=== PATIENT | female | born 1970 | race Caucasian/White ===

== ENCOUNTER 2021-04-24 18:16 | Inpatient (IN) ==
[2021-04-24 19:52] LABS: Basophils % 0.2 %; Eosinophils # 0.7 K/mcL (0.0-0.6); Eosinophils % 6.6 %; Hematocrit 33.1 % (35.3-44.9); Immature Granulocytes % 0.3 % (0-4); Lymphocytes % 9.3 %; Mean Corpuscular HGB Conc 30.2 g/dL (31.6-35.5); Mean Corpuscular Hemoglobin 28.6 pg (28.0-33.3); Mean Corpuscular Volume 94.6 fL (83.0-100.0); Mean Platelet Volume 10.3 fL (9.4-12.4); Monocytes # 0.6 K/mcL (0.0-1.3); Monocytes % 5.6 %; Neutrophils # 8.3 K/mcL (1.6-8.9); Platelet Count 222 K/mcL (140-400); Red Cell Distribution Width 13.6 % (11.5-14.5); White Blood Count 10.6 K/mcL (4.3-11.1)
[2021-04-24] MEDS ORDERED: 0.9 % Sodium Chloride 1,000 ML IVC ONE (20:11)
[2021-04-24 20:12] LABS: Alanine Aminotransferase 11 Units/L (7-52); Albumin 3.9 g/dL (3.5-5.7); Albumin/Globulin Ratio 1.4 (1.1-2.2); Alkaline Phosphatase 108 Units/L (34-104); Aspartate Amino Transferase 13 Units/L (13-39); BUN/Creatinine Ratio 25 (6-26); Bilirubin,Indirect 0.3 mg/dL (0.0-1.0); Bilirubin,Total 0.3 mg/dL (0.3-1.0); Blood Urea Nitrogen 23 mg/dL (6-20); Calcium 9.2 mg/dL (8.6-10.3); Carbon Dioxide 25 mEq/L (23-29); Chloride 104 mEq/L (98-107); Globulin 2.7 g/dL (2.4-3.5); Glucose 98 mg/dL (70-105); Lipase 14 Units/L (11-82); Osmolality,Calculated 288 (280-300); Sodium 137 mEq/L (136-145); Total Protein 6.6 g/dL (6.4-8.9); eGFR For African Americans > 60 (> 60); eGFR For Non-African Americans > 60 (> 60)
[2021-04-24] MEDS ORDERED: *HR* FentaNYL (PF) 100 MCG/2 ML VIAL IVP ONE (21:18)
[2021-04-24 21:24] LABS: Bilirubin,Urine Negative (Negative); Blood,Urine Negative (Negative); Clarity,Urine Clear (Clear); Color,Urine Light-Yellow (Yellow); Glucose,Urine (UA) Normal (Normal); Ketones,Urine Negative (Negative); Leukocyte Esterase,Urine Negative (Negative); Nitrite,Urine Negative (Negative); Protein,Urine Negative (Neg-Trace); Specific Gravity,Urine 1.017 (1.010-1.025); Urobilinogen,Urine Normal (Normal)
[2021-04-24] MEDS ORDERED: Isovue-370 500 ML BOTTLE IVP ONE (21:42)
[2021-04-25] MEDS ORDERED: *HR* FentaNYL (PF) 100 MCG/2 ML VIAL IVP ONE ×2 (00:22→06:17)
[2021-04-25] MEDS ORDERED: SODIUM CHLORIDE 0.9% IVPB ONE (01:59)
[2021-04-25] MEDS ORDERED: KETAMINE IVPB ONE (01:59)
[2021-04-25 04:08] LABS: Acetaminophen < 10 mcg/mL (10-20)
[2021-04-25] MEDS ORDERED: Ondansetron 4 MG/2 ML VIAL IVP PRN (11:01)
[2021-04-25] MEDS ORDERED: Naloxone 0.4 MG/ML INJ IVP PRN (11:01)
[2021-04-25] MEDS: Ketorolac 30 MG/ML VIAL IVP PRN (13:03)
[2021-04-25] MEDS: Celecoxib 100 MG CAPSULE PO SCH ×2 (13:03→22:00)
[2021-04-25] MEDS: atenoloL 25 MG TABLET PO SCH (13:04)
[2021-04-25] MEDS: Gabapentin 400 MG CAPSULE PO SCH ×2 (13:04→22:33)
[2021-04-25] MEDS: Loratadine 10 MG TABLET PO SCH (13:04)
[2021-04-25] MEDS ORDERED: Ringers Solution, Lactated 1,000 ML IVC ONE (14:45)
[2021-04-25] MEDS ORDERED: Ringers Solution, Lactated 1,000 ML ONE (14:46)
[2021-04-25] MEDS ORDERED: Piperacillin/Tazobactam 3.375 GM in 0.9 % Sodium Chloride Mini Bag 100 ML IVPB SCH (17:44)
[2021-04-25 19:21] LABS: Influenza A PCR Negative (Negative); Influenza B PCR Negative (Negative); Resp. Syncytial Virus PCR Negative (Negative)
[2021-04-25 19:23] LABS: SARS-CoV-2 by PCR (In House) Negative (Negative)
[2021-04-25] MEDS ORDERED: Albumin 25% 25gram/100mL 25 GM/100 ML IV.SOLN IVPB ONE (19:34)
[2021-04-25] MEDS: Acetaminophen 325 MG TABLET PO PRN (19:34)
[2021-04-25] MEDS: Vancomycin 1,250 MG/262.5 ML IV.SOLN IVPB SCH (19:34)
[2021-04-25] MEDS: Famotidine 20 MG TABLET PO SCH (19:35)
[2021-04-25] MEDS: traZODone 50 MG TABLET PO SCH (22:33)
[2021-04-26] MEDS: Piperacillin/Tazobactam 3.375 GM in 0.9 % Sodium Chloride Mini Bag 100 ML IVPB SCH ×5 (01:56→17:48)
[2021-04-26] MEDS: Mirabegron [Myrbetriq] 50 MG Tab.Er.24h PO SCH (07:30)
[2021-04-26] MEDS: Vancomycin 1,250 MG/262.5 ML IV.SOLN IVPB SCH ×2 (07:51→17:48)
[2021-04-26] MEDS: Ketorolac 30 MG/ML VIAL IVP PRN ×3 (08:22→20:47)
[2021-04-26] MEDS: Acetaminophen 325 MG TABLET PO PRN (08:22)
[2021-04-26] MEDS: atenoloL 25 MG TABLET PO SCH (08:23)
[2021-04-26] MEDS: Loratadine 10 MG TABLET PO SCH (08:23)
[2021-04-26] MEDS: Celecoxib 100 MG CAPSULE PO SCH ×2 (08:23→20:48)
[2021-04-26] MEDS: Gabapentin 400 MG CAPSULE PO SCH ×2 (08:24→20:47)
[2021-04-26] MEDS: Famotidine 20 MG TABLET PO SCH ×2 (08:24→20:47)
[2021-04-26] MEDS ORDERED: lisinopriL 5 MG TABLET PO SCH (09:00)
[2021-04-26] MEDS ORDERED: D5% in Water 1,000 ML IVC PRN (11:12)
[2021-04-26] MEDS ORDERED: *HR* Dextrose 50 % in Water (Syg) 50 ML SYRINGE IVP PRN (11:12)
[2021-04-26] MEDS ORDERED: Dextrose Gel 15 GM/37.5 ML TUBE PO PRN ×2 (11:12)
[2021-04-26] MEDS ORDERED: Gadolinium Contrast Agent (WT Based) IV PRN (11:40)
[2021-04-26] MEDS: Insulin LISPRO 300 UNITS/3 ML VIAL SUBQ SCH ×2 (11:47→17:58)
[2021-04-26] MEDS ORDERED: GADOBUTROL 30 MMOL/30 ML VIAL IVP ONE (12:39)
[2021-04-26 15:34] LABS: eGFR For African Americans > 60 (> 60); eGFR For Non-African Americans > 60 (> 60)
[2021-04-26 16:42] LABS: Acinetobacter baumannii by PCR Not Detected (Not Detect); Candida albicans by PCR Not Detected (Not Detect); Candida glabrata by PCR Not Detected (Not Detect); Candida krusei by PCR Not Detected (Not Detect); Candida parapsilosis by PCR Not Detected (Not Detect); Candida tropicalis by PCR Not Detected (Not Detect); Enterobacter cloacae Cmplx PCR Not Detected (Not Detect); Enterobacteriaceae by PCR Not Detected (Not Detect); Enterococcus by PCR Not Detected (Not Detect); Escherichia coli by PCR Not Detected (Not Detect); Klebsiella oxytoca by PCR Not Detected (Not Detect); Klebsiella pneumoniae by PCR Not Detected (Not Detect); Proteus by PCR Not Detected (Not Detect); Pseudomonas aeruginosa by PCR Not Detected (Not Detect); Serratia marcescens by PCR Not Detected (Not Detect); Staphylococcus aureus by PCR DETECTED (Not Detect); Streptococcus agalactiae(B)PCR Not Detected (Not Detect); Streptococcus by PCR Not Detected (Not Detect); Streptococcus pneumoniae PCR Not Detected (Not Detect); Streptococcus pyogenes (A) PCR Not Detected (Not Detect); mecA Methicillin-Resist Gene Not Detected (Not Detect)
[2021-04-26] MEDS: *HR* OxyCODONE/APAP 5/325 TABLET PO PRN (17:54)
[2021-04-26] MEDS: traZODone 50 MG TABLET PO SCH (23:10)
[2021-04-27] MEDS: Insulin LISPRO 300 UNITS/3 ML VIAL SUBQ SCH ×5 (00:27→23:09)
[2021-04-27] MEDS: Piperacillin/Tazobactam 3.375 GM in 0.9 % Sodium Chloride Mini Bag 100 ML IVPB SCH ×3 (00:53→16:05)
[2021-04-27 01:43] LABS: Basophils % 0.1 %; Hematocrit 27.6 % (35.3-44.9); Hemoglobin 8.6 g/dL (11.5-15.4); Immature Granulocytes % 0.8 % (0-4); Lymphocytes # 0.4 K/mcL (0.6-4.6); Lymphocytes % 4.3 %; Mean Corpuscular HGB Conc 31.2 g/dL (31.6-35.5); Mean Corpuscular Hemoglobin 28.8 pg (28.0-33.3); Mean Corpuscular Volume 92.3 fL (83.0-100.0); Mean Platelet Volume 11.2 fL (9.4-12.4); Monocytes # 0.5 K/mcL (0.0-1.3); Monocytes % 5.2 %; Neutrophils # 7.9 K/mcL (1.6-8.9); Platelet Count 174 K/mcL (140-400); Red Blood Count 2.99 M/mcL (3.82-4.97); Red Cell Distribution Width 13.4 % (11.5-14.5); Segmented Neutrophils % 89.6 %; White Blood Count 8.9 K/mcL (4.3-11.1)
[2021-04-27 02:03] LABS: BUN/Creatinine Ratio 21 (6-26); Blood Urea Nitrogen 17 mg/dL (6-20); Calcium 8.6 mg/dL (8.6-10.3); Carbon Dioxide 21 mEq/L (23-29); Chloride 105 mEq/L (98-107); Glucose 147 mg/dL (70-105); Magnesium 1.9 mg/dL (1.6-2.6); Osmolality,Calculated 282 (280-300); Potassium 3.7 mEq/L (3.5-5.1); Sodium 134 mEq/L (136-145); eGFR For African Americans > 60 (> 60); eGFR For Non-African Americans > 60 (> 60)
[2021-04-27] MEDS: Ketorolac 30 MG/ML VIAL IVP PRN ×3 (05:17→18:51)
[2021-04-27] MEDS: Vancomycin 1,250 MG/262.5 ML IV.SOLN IVPB SCH (08:44)
[2021-04-27] MEDS: atenoloL 25 MG TABLET PO SCH (08:45)
[2021-04-27] MEDS: Loratadine 10 MG TABLET PO SCH (08:45)
[2021-04-27] MEDS: Gabapentin 400 MG CAPSULE PO SCH ×2 (08:45→20:14)
[2021-04-27] MEDS: Mirabegron [Myrbetriq] 50 MG Tab.Er.24h PO SCH (08:46)
[2021-04-27] MEDS: Celecoxib 100 MG CAPSULE PO SCH ×2 (08:46→20:14)
[2021-04-27] MEDS: Famotidine 20 MG TABLET PO SCH ×2 (08:46→20:14)
[2021-04-27] MEDS: *HR* OxyCODONE/APAP 5/325 TABLET PO PRN ×3 (08:51→23:12)
[2021-04-27] MEDS: traZODone 50 MG TABLET PO SCH (20:14)
[2021-04-27] MEDS: CeFAZolin 2,000 MG/120 ML BAG IVPB SCH (23:13)
[2021-04-28] MEDS: Ketorolac 30 MG/ML VIAL IVP PRN ×2 (00:47→06:40)
[2021-04-28 01:18] LABS: Basophils % 0.1 %; Eosinophils # 0.1 K/mcL (0.0-0.6); Eosinophils % 0.6 %; Hematocrit 30.1 % (35.3-44.9); Hemoglobin 9.6 g/dL (11.5-15.4); Immature Granulocytes % 0.4 % (0-4); Lymphocytes # 1.1 K/mcL (0.6-4.6); Lymphocytes % 11.1 %; Mean Corpuscular HGB Conc 31.9 g/dL (31.6-35.5); Mean Corpuscular Hemoglobin 29.1 pg (28.0-33.3); Mean Corpuscular Volume 91.2 fL (83.0-100.0); Mean Platelet Volume 11.1 fL (9.4-12.4); Monocytes # 0.5 K/mcL (0.0-1.3); Monocytes % 5.5 %; Platelet Count 219 K/mcL (140-400); Red Cell Distribution Width 13.6 % (11.5-14.5); Segmented Neutrophils % 82.3 %; White Blood Count 9.7 K/mcL (4.3-11.1)
[2021-04-28 02:38] LABS: BUN/Creatinine Ratio 27 (6-26); Blood Urea Nitrogen 26 mg/dL (6-20); Calcium 8.8 mg/dL (8.6-10.3); Carbon Dioxide 19 mEq/L (23-29); Chloride 104 mEq/L (98-107); Glucose 105 mg/dL (70-105); Osmolality,Calculated 281 (280-300); Phosphorous 2.9 mg/dL (2.7-4.5); Potassium 3.9 mEq/L (3.5-5.1); Sodium 133 mEq/L (136-145); eGFR For African Americans > 60 (> 60); eGFR For Non-African Americans > 60 (> 60)
[2021-04-28] MEDS: *HR* OxyCODONE/APAP 5/325 TABLET PO PRN (05:18)
[2021-04-28] MEDS: Insulin LISPRO 300 UNITS/3 ML VIAL SUBQ SCH ×2 (05:20→13:18)
[2021-04-28] MEDS: Celecoxib 100 MG CAPSULE PO SCH ×2 (09:08→20:41)
[2021-04-28] MEDS: CeFAZolin 2,000 MG/120 ML BAG IVPB SCH ×3 (09:08→22:58)
[2021-04-28] MEDS: Gabapentin 400 MG CAPSULE PO SCH ×2 (09:08→20:41)
[2021-04-28] MEDS: Famotidine 20 MG TABLET PO SCH ×2 (09:08→20:41)
[2021-04-28] MEDS: atenoloL 25 MG TABLET PO SCH (09:08)
[2021-04-28] MEDS: Loratadine 10 MG TABLET PO SCH (09:09)
[2021-04-28] MEDS: Mirabegron [Myrbetriq] 50 MG Tab.Er.24h PO SCH (09:14)
[2021-04-28] MEDS: *HR* OxyCODONE/APAP 10/325 TABLET PO PRN ×3 (11:30→23:50)
[2021-04-28] MEDS: *HR* HYDROmorphone (PF) 1 MG/ML SYRINGE IVP PRN ×2 (13:51→19:53)
[2021-04-28] MEDS: Acetaminophen 325 MG TABLET PO PRN (14:35)
[2021-04-28] MEDS: traZODone 50 MG TABLET PO SCH (20:41)
[2021-04-29] MEDS: *HR* HYDROmorphone (PF) 1 MG/ML SYRINGE IVP PRN ×3 (03:58→19:54)
[2021-04-29 04:11] LABS: Basophils % 0.2 %; Eosinophils # 0.2 K/mcL (0.0-0.6); Hematocrit 27.7 % (35.3-44.9); Lymphocytes # 0.9 K/mcL (0.6-4.6); Lymphocytes % 10.2 %; Mean Corpuscular HGB Conc 32.5 g/dL (31.6-35.5); Mean Corpuscular Hemoglobin 29.1 pg (28.0-33.3); Mean Corpuscular Volume 89.6 fL (83.0-100.0); Mean Platelet Volume 10.2 fL (9.4-12.4); Monocytes # 0.7 K/mcL (0.0-1.3); Monocytes % 7.9 %; Neutrophils # 7.1 K/mcL (1.6-8.9); Platelet Count 222 K/mcL (140-400); Red Blood Count 3.09 M/mcL (3.82-4.97); Red Cell Distribution Width 13.9 % (11.5-14.5); Segmented Neutrophils % 78.7 %; White Blood Count 9.1 K/mcL (4.3-11.1)
[2021-04-29 04:45] LABS: BUN/Creatinine Ratio 23 (6-26); Blood Urea Nitrogen 13 mg/dL (6-20); Calcium 8.6 mg/dL (8.6-10.3); Carbon Dioxide 22 mEq/L (23-29); Chloride 107 mEq/L (98-107); Glucose 119 mg/dL (70-105); Osmolality,Calculated 285 (280-300); Potassium 3.7 mEq/L (3.5-5.1); Sodium 137 mEq/L (136-145); eGFR For African Americans > 60 (> 60); eGFR For Non-African Americans > 60 (> 60)
[2021-04-29] MEDS: Celecoxib 100 MG CAPSULE PO SCH ×2 (08:18→19:54)
[2021-04-29] MEDS: Loratadine 10 MG TABLET PO SCH (08:18)
[2021-04-29] MEDS: Famotidine 20 MG TABLET PO SCH ×2 (08:18→19:54)
[2021-04-29] MEDS: atenoloL 25 MG TABLET PO SCH (08:18)
[2021-04-29] MEDS: *HR* OxyCODONE/APAP 10/325 TABLET PO PRN ×2 (08:18→15:37)
[2021-04-29] MEDS: Gabapentin 400 MG CAPSULE PO SCH ×2 (08:18→19:55)
[2021-04-29] MEDS: CeFAZolin 2,000 MG/120 ML BAG IVPB SCH ×2 (08:22→15:38)
[2021-04-29] MEDS: Mirabegron [Myrbetriq] 50 MG Tab.Er.24h PO SCH (08:23)
[2021-04-29] MEDS ORDERED: Perflutren Lipid Microsphere 1.3 ML in 0.9 % Sodium Chloride 8.7 ML IVP PRN (10:48)
[2021-04-29] MEDS: traZODone 50 MG TABLET PO SCH (19:54)
[2021-04-29] MEDS: *HR* OxyCODONE Immed Rel 5 MG TABLET PO PRN (23:34)
[2021-04-30] MEDS: CeFAZolin 2,000 MG/120 ML BAG IVPB SCH ×3 (01:32→17:29)
[2021-04-30] MEDS: *HR* HYDROmorphone (PF) 1 MG/ML SYRINGE IVP PRN ×4 (01:32→17:30)
[2021-04-30] MEDS: *HR* OxyCODONE/APAP 10/325 TABLET PO PRN ×3 (05:01→15:49)
[2021-04-30] MEDS: Famotidine 20 MG TABLET PO SCH (07:44)
[2021-04-30] MEDS: Loratadine 10 MG TABLET PO SCH (07:44)
[2021-04-30] MEDS: atenoloL 25 MG TABLET PO SCH (07:45)
[2021-04-30] MEDS: Celecoxib 100 MG CAPSULE PO SCH (07:45)
[2021-04-30] MEDS: Gabapentin 400 MG CAPSULE PO SCH (07:45)
[2021-04-30] MEDS: Mirabegron [Myrbetriq] 50 MG Tab.Er.24h PO SCH (07:46)
[2021-04-30] MEDS: *HR* OxyCODONE Immed Rel 5 MG TABLET PO PRN (10:15)
[2021-05-01] MEDS: Celecoxib 100 MG CAPSULE PO SCH ×3 (00:12→19:32)
[2021-05-01] MEDS: traZODone 50 MG TABLET PO SCH ×2 (00:12→19:32)
[2021-05-01] MEDS: CeFAZolin 2,000 MG/120 ML BAG IVPB SCH ×4 (00:12→23:09)
[2021-05-01] MEDS: *HR* OxyCODONE Immed Rel 5 MG TABLET PO PRN (00:12)
[2021-05-01] MEDS: Gabapentin 400 MG CAPSULE PO SCH ×3 (00:12→19:32)
[2021-05-01] MEDS: Famotidine 20 MG TABLET PO SCH ×3 (00:12→19:32)
[2021-05-01] MEDS: *HR* HYDROmorphone (PF) 1 MG/ML SYRINGE IVP PRN ×4 (02:59→19:18)
[2021-05-01 07:05] LABS: Hematocrit 31.8 % (35.3-44.9); Hemoglobin 10.1 g/dL (11.5-15.4); Mean Corpuscular HGB Conc 31.8 g/dL (31.6-35.5); Mean Corpuscular Hemoglobin 28.7 pg (28.0-33.3); Mean Corpuscular Volume 90.3 fL (83.0-100.0); Mean Platelet Volume 11.1 fL (9.4-12.4); Platelet Count 253 K/mcL (140-400); Red Blood Count 3.52 M/mcL (3.82-4.97); Red Cell Distribution Width 13.8 % (11.5-14.5); White Blood Count 9.7 K/mcL (4.3-11.1)
[2021-05-01 07:16] LABS: BUN/Creatinine Ratio 23 (6-26); Blood Urea Nitrogen 11 mg/dL (6-20); Calcium 8.9 mg/dL (8.6-10.3); Carbon Dioxide 21 mEq/L (23-29); Chloride 102 mEq/L (98-107); Glucose 79 mg/dL (70-105); Osmolality,Calculated 274 (280-300); Potassium 4.4 mEq/L (3.5-5.1); Sodium 133 mEq/L (136-145); eGFR For African Americans > 60 (> 60); eGFR For Non-African Americans > 60 (> 60)
[2021-05-01 08:15] LABS: Eosinophils # 0.6 K/mcL (0.0-0.6); Lymphocytes # 1.9 K/mcL (0.6-4.6); Monocytes # 0.6 K/mcL (0.0-1.3); Platelet Estimate Normal (Normal)
[2021-05-01] MEDS: *HR* OxyCODONE/APAP 10/325 TABLET PO PRN ×3 (09:09→23:09)
[2021-05-01] MEDS: atenoloL 25 MG TABLET PO SCH (09:11)
[2021-05-01] MEDS: Loratadine 10 MG TABLET PO SCH (09:11)
[2021-05-01] MEDS: polyethylene glycoL 3350 17 GM POWD.PACK PO SCH (13:31)
[2021-05-01] MEDS: Mirabegron [Myrbetriq] 50 MG Tab.Er.24h PO SCH (13:31)
[2021-05-02 01:16] LABS: Basophils # 0.1 K/mcL (0.0-0.2); Eosinophils # 0.7 K/mcL (0.0-0.6); Eosinophils % 8.9 %; Hematocrit 30.5 % (35.3-44.9); Hemoglobin 10.1 g/dL (11.5-15.4); Immature Granulocytes % 10.6 % (0-4); Lymphocytes # 0.8 K/mcL (0.6-4.6); Mean Corpuscular HGB Conc 33.1 g/dL (31.6-35.5); Mean Corpuscular Hemoglobin 29.3 pg (28.0-33.3); Mean Corpuscular Volume 88.4 fL (83.0-100.0); Mean Platelet Volume 10.4 fL (9.4-12.4); Monocytes # 0.5 K/mcL (0.0-1.3); Monocytes % 6.1 %; Neutrophils # 5.1 K/mcL (1.6-8.9); Platelet Count 324 K/mcL (140-400); Red Blood Count 3.45 M/mcL (3.82-4.97); Red Cell Distribution Width 13.5 % (11.5-14.5); Segmented Neutrophils % 63.4 %; White Blood Count 8.1 K/mcL (4.3-11.1)
[2021-05-02 01:30] LABS: BUN/Creatinine Ratio 20 (6-26); Blood Urea Nitrogen 10 mg/dL (6-20); Calcium 8.8 mg/dL (8.6-10.3); Carbon Dioxide 20 mEq/L (23-29); Chloride 95 mEq/L (98-107); Glucose 108 mg/dL (70-105); Osmolality,Calculated 264 (280-300); Sodium 127 mEq/L (136-145); eGFR For African Americans > 60 (> 60); eGFR For Non-African Americans > 60 (> 60)
[2021-05-02] MEDS: *HR* OxyCODONE/APAP 10/325 TABLET PO PRN ×2 (03:21→16:06)
[2021-05-02] MEDS: *HR* HYDROmorphone (PF) 1 MG/ML SYRINGE IVP PRN ×4 (06:17→19:57)
[2021-05-02] MEDS: Famotidine 20 MG TABLET PO SCH ×2 (08:09→19:56)
[2021-05-02] MEDS: atenoloL 25 MG TABLET PO SCH (08:09)
[2021-05-02] MEDS: polyethylene glycoL 3350 17 GM POWD.PACK PO SCH (08:09)
[2021-05-02] MEDS: Celecoxib 100 MG CAPSULE PO SCH ×2 (08:09→19:57)
[2021-05-02] MEDS: Gabapentin 400 MG CAPSULE PO SCH ×2 (08:09→19:56)
[2021-05-02] MEDS: Loratadine 10 MG TABLET PO SCH (08:10)
[2021-05-02] MEDS: Mirabegron [Myrbetriq] 50 MG Tab.Er.24h PO SCH (08:27)
[2021-05-02] MEDS: CeFAZolin 2,000 MG/120 ML BAG IVPB SCH ×2 (08:30→16:06)
[2021-05-02] MEDS: traZODone 50 MG TABLET PO SCH (19:56)
[2021-05-03] MEDS: CeFAZolin 2,000 MG/120 ML BAG IVPB SCH ×4 (00:10→23:37)
[2021-05-03] MEDS: *HR* OxyCODONE/APAP 10/325 TABLET PO PRN ×2 (00:14→12:20)
[2021-05-03] MEDS: *HR* HYDROmorphone (PF) 1 MG/ML SYRINGE IVP PRN ×3 (06:35→16:07)
[2021-05-03] MEDS: Gabapentin 400 MG CAPSULE PO SCH ×2 (08:41→19:26)
[2021-05-03] MEDS: Famotidine 20 MG TABLET PO SCH ×2 (08:41→19:26)
[2021-05-03] MEDS: Celecoxib 100 MG CAPSULE PO SCH ×2 (08:41→19:26)
[2021-05-03] MEDS: polyethylene glycoL 3350 17 GM POWD.PACK PO SCH (08:41)
[2021-05-03] MEDS: Loratadine 10 MG TABLET PO SCH (08:42)
[2021-05-03] MEDS: atenoloL 25 MG TABLET PO SCH (08:42)
[2021-05-03] MEDS: Mirabegron [Myrbetriq] 50 MG Tab.Er.24h PO SCH (08:45)
[2021-05-03] MEDS ORDERED: *HR* LORazepam 2 MG/ML VIAL IVP ONE (11:43)
[2021-05-03] MEDS: traZODone 50 MG TABLET PO SCH (19:26)
[2021-05-04] MEDS: *HR* OxyCODONE/APAP 10/325 TABLET PO PRN (03:50)
[2021-05-04] MEDS: CeFAZolin 2,000 MG/120 ML BAG IVPB SCH ×2 (08:17→16:00)
[2021-05-04] MEDS: Loratadine 10 MG TABLET PO SCH (08:18)
[2021-05-04] MEDS: Celecoxib 100 MG CAPSULE PO SCH ×2 (08:18→20:56)
[2021-05-04] MEDS: Gabapentin 400 MG CAPSULE PO SCH ×2 (08:18→20:55)
[2021-05-04] MEDS: Famotidine 20 MG TABLET PO SCH ×2 (08:18→20:55)
[2021-05-04] MEDS: atenoloL 25 MG TABLET PO SCH (08:18)
[2021-05-04] MEDS: *HR* HYDROmorphone (PF) 1 MG/ML SYRINGE IVP PRN ×4 (08:19→20:56)
[2021-05-04] MEDS: polyethylene glycoL 3350 17 GM POWD.PACK PO SCH (08:25)
[2021-05-04] MEDS: Mirabegron [Myrbetriq] 50 MG Tab.Er.24h PO SCH (08:33)
[2021-05-04] MEDS: traZODone 50 MG TABLET PO SCH (20:55)
[2021-05-05] MEDS: CeFAZolin 2,000 MG/120 ML BAG IVPB SCH ×4 (00:13→23:49)
[2021-05-05] MEDS: *HR* HYDROmorphone (PF) 1 MG/ML SYRINGE IVP PRN ×4 (01:45→20:12)
[2021-05-05] MEDS: Gabapentin 400 MG CAPSULE PO SCH ×2 (08:43→20:12)
[2021-05-05] MEDS: atenoloL 25 MG TABLET PO SCH (08:44)
[2021-05-05] MEDS: Loratadine 10 MG TABLET PO SCH (08:44)
[2021-05-05] MEDS: Celecoxib 100 MG CAPSULE PO SCH ×2 (08:44→20:12)
[2021-05-05] MEDS: Mirabegron [Myrbetriq] 50 MG Tab.Er.24h PO SCH (08:44)
[2021-05-05] MEDS: Famotidine 20 MG TABLET PO SCH ×2 (08:44→20:12)
[2021-05-05] MEDS: polyethylene glycoL 3350 17 GM POWD.PACK PO SCH (08:44)
[2021-05-05] MEDS ORDERED: Lidocaine Viscous Oral Soln 15 ML SOLUTION MM PRN (10:33)
[2021-05-05] MEDS ORDERED: 0.9 % Sodium Chloride 500 ML IVC ONE (10:34)
[2021-05-05] MEDS ORDERED: *HR* Midazolam HCl 2 MG/2 ML VIAL IVP PRN (10:34)
[2021-05-05] MEDS ORDERED: *HR* Midazolam HCl 5 MG/5 ML VIAL IVP ONE ×2 (10:55→10:56)
[2021-05-05] MEDS: *HR* FentaNYL (PF) 100 MCG/2 ML VIAL IVP PRN ×2 (11:05→11:10)
[2021-05-05] MEDS: traZODone 50 MG TABLET PO SCH (20:12)
[2021-05-06] MEDS: *HR* HYDROmorphone (PF) 1 MG/ML SYRINGE IVP PRN ×4 (04:38→18:40)
[2021-05-06] MEDS: Gabapentin 400 MG CAPSULE PO SCH ×2 (08:21→20:50)
[2021-05-06] MEDS: Celecoxib 100 MG CAPSULE PO SCH ×2 (08:22→20:50)
[2021-05-06] MEDS: Loratadine 10 MG TABLET PO SCH (08:22)
[2021-05-06] MEDS: Famotidine 20 MG TABLET PO SCH ×2 (08:22→20:50)
[2021-05-06] MEDS: polyethylene glycoL 3350 17 GM POWD.PACK PO SCH (08:23)
[2021-05-06] MEDS: atenoloL 25 MG TABLET PO SCH (08:23)
[2021-05-06] MEDS: Mirabegron [Myrbetriq] 50 MG Tab.Er.24h PO SCH (08:23)
[2021-05-06] MEDS: CeFAZolin 2,000 MG/120 ML BAG IVPB SCH ×2 (08:27→14:20)
[2021-05-06 11:15] LABS: Adenovirus Not Detected (Not Detect); Bordetella Pertussis Not Detected (Not Detect); Chlamydophila pneumoniae Not Detected (Not Detect); Coronavirus 229E Not Detected (Not Detect); Coronavirus HKU1 Not Detected (Not Detect); Coronavirus NL63 Not Detected (Not Detect); Coronavirus OC43 Not Detected (Not Detect); Human Metapneumovirus Not Detected (Not Detect); Human Rhinovirus/Enterovirus Not Detected (Not Detect); Influenza A Subtype 2009 H1 Not Detected (Not Detect); Influenza B Not Detected (Not Detect); Mycoplasma pneumoniae Not Detected (Not Detect); Parainfluenza Virus 1 Not Detected (Not Detect); Parainfluenza Virus 2 Not Detected (Not Detect); Parainfluenza Virus 3 Not Detected (Not Detect); Parainfluenza Virus 4 Not Detected (Not Detect); Respiratory Syncytial Virus Not Detected (Not Detect)
[2021-05-06 11:18] LABS: SARS-CoV-2 DETECTED (Not Detect)
[2021-05-06] MEDS: *HR* OxyCODONE/APAP 10/325 TABLET PO PRN (20:50)
[2021-05-06] MEDS: traZODone 50 MG TABLET PO SCH (20:51)
[2021-05-07] MEDS: CeFAZolin 2,000 MG/120 ML BAG IVPB SCH ×4 (01:41→23:22)
[2021-05-07] MEDS: *HR* HYDROmorphone (PF) 1 MG/ML SYRINGE IVP PRN ×4 (01:42→20:33)
[2021-05-07] MEDS: Gabapentin 400 MG CAPSULE PO SCH ×2 (08:18→20:33)
[2021-05-07] MEDS: polyethylene glycoL 3350 17 GM POWD.PACK PO SCH (08:20)
[2021-05-07] MEDS: Loratadine 10 MG TABLET PO SCH (08:20)
[2021-05-07] MEDS: Famotidine 20 MG TABLET PO SCH ×2 (08:20→20:34)
[2021-05-07] MEDS: atenoloL 25 MG TABLET PO SCH (08:20)
[2021-05-07] MEDS: Celecoxib 100 MG CAPSULE PO SCH ×2 (08:20→20:33)
[2021-05-07] MEDS: Mirabegron [Myrbetriq] 50 MG Tab.Er.24h PO SCH (09:21)
[2021-05-07] MEDS: *HR* OxyCODONE/APAP 10/325 TABLET PO PRN ×3 (13:05→23:22)
[2021-05-07] MEDS: traZODone 50 MG TABLET PO SCH (20:34)
[2021-05-08] MEDS: *HR* HYDROmorphone (PF) 1 MG/ML SYRINGE IVP PRN ×2 (04:16→12:11)
[2021-05-08] MEDS: Celecoxib 100 MG CAPSULE PO SCH ×2 (09:39→22:34)
[2021-05-08] MEDS: polyethylene glycoL 3350 17 GM POWD.PACK PO SCH (09:39)
[2021-05-08] MEDS: Famotidine 20 MG TABLET PO SCH ×2 (09:40→22:34)
[2021-05-08] MEDS: Gabapentin 400 MG CAPSULE PO SCH ×2 (09:40→22:34)
[2021-05-08] MEDS: Loratadine 10 MG TABLET PO SCH (09:40)
[2021-05-08] MEDS: atenoloL 25 MG TABLET PO SCH (09:41)
[2021-05-08] MEDS: CeFAZolin 2,000 MG/120 ML BAG IVPB SCH ×2 (09:41→22:35)
[2021-05-08] MEDS: *HR* OxyCODONE Immed Rel 5 MG TABLET PO PRN (09:41)
[2021-05-08] MEDS: Mirabegron [Myrbetriq] 50 MG Tab.Er.24h PO SCH (09:42)
[2021-05-08] MEDS ORDERED: Fluconazole 150 MG TABLET PO ONE (11:54)
[2021-05-08] MEDS: traZODone 50 MG TABLET PO SCH (22:34)
[2021-05-08] MEDS: *HR* OxyCODONE/APAP 10/325 TABLET PO PRN (22:36)
[2021-05-08] MEDS: Nystatin POWDER 30 GM BOTTLE TP SCH ×2 (22:43→22:44)
[2021-05-09] MEDS: CeFAZolin 2,000 MG/120 ML BAG IVPB SCH ×3 (01:57→18:36)
[2021-05-09] MEDS: *HR* OxyCODONE/APAP 10/325 TABLET PO PRN ×3 (02:18→18:35)
[2021-05-09] MEDS: Gabapentin 400 MG CAPSULE PO SCH ×2 (09:37→21:40)
[2021-05-09] MEDS: Celecoxib 100 MG CAPSULE PO SCH ×2 (09:37→21:40)
[2021-05-09] MEDS: Famotidine 20 MG TABLET PO SCH ×2 (09:38→21:40)
[2021-05-09] MEDS: Loratadine 10 MG TABLET PO SCH (09:38)
[2021-05-09] MEDS: atenoloL 25 MG TABLET PO SCH (09:38)
[2021-05-09] MEDS: polyethylene glycoL 3350 17 GM POWD.PACK PO SCH (09:39)
[2021-05-09] MEDS: Nystatin POWDER 30 GM BOTTLE TP SCH ×2 (09:39→21:51)
[2021-05-09] MEDS: Mirabegron [Myrbetriq] 50 MG Tab.Er.24h PO SCH (09:40)
[2021-05-09] MEDS: *HR* HYDROmorphone (PF) 1 MG/ML SYRINGE IVP PRN ×2 (13:02→22:35)
[2021-05-09] MEDS: traZODone 50 MG TABLET PO SCH (21:40)
[2021-05-10] MEDS: CeFAZolin 2,000 MG/120 ML BAG IVPB SCH ×4 (01:21→23:04)
[2021-05-10] MEDS: atenoloL 25 MG TABLET PO SCH (07:59)
[2021-05-10] MEDS: Loratadine 10 MG TABLET PO SCH (08:00)
[2021-05-10] MEDS: Gabapentin 400 MG CAPSULE PO SCH ×2 (08:01→22:19)
[2021-05-10] MEDS: Famotidine 20 MG TABLET PO SCH ×2 (08:02→22:19)
[2021-05-10] MEDS: Celecoxib 100 MG CAPSULE PO SCH ×2 (08:02→22:19)
[2021-05-10] MEDS: *HR* OxyCODONE/APAP 10/325 TABLET PO PRN ×3 (08:03→22:19)
[2021-05-10] MEDS: Nystatin POWDER 30 GM BOTTLE TP SCH ×2 (08:04→22:23)
[2021-05-10] MEDS: Mirabegron [Myrbetriq] 50 MG Tab.Er.24h PO SCH (08:05)
[2021-05-10] MEDS: polyethylene glycoL 3350 17 GM POWD.PACK PO SCH (08:10)
[2021-05-10] MEDS: *HR* HYDROmorphone (PF) 1 MG/ML SYRINGE IVP PRN ×2 (10:50→16:40)
[2021-05-10 12:26] LABS: Basophils % 0.6 %; Eosinophils # 0.2 K/mcL (0.0-0.6); Eosinophils % 4.6 %; Hematocrit 31.8 % (35.3-44.9); Hemoglobin 9.7 g/dL (11.5-15.4); Immature Granulocytes % 2.3 % (0-4); Lymphocytes # 1.4 K/mcL (0.6-4.6); Lymphocytes % 29.6 %; Mean Corpuscular HGB Conc 30.5 g/dL (31.6-35.5); Mean Corpuscular Hemoglobin 27.5 pg (28.0-33.3); Mean Corpuscular Volume 90.1 fL (83.0-100.0); Mean Platelet Volume 10.7 fL (9.4-12.4); Monocytes # 0.2 K/mcL (0.0-1.3); Neutrophils # 2.8 K/mcL (1.6-8.9); Platelet Count 335 K/mcL (140-400); Red Blood Count 3.53 M/mcL (3.82-4.97); Red Cell Distribution Width 13.6 % (11.5-14.5); Segmented Neutrophils % 57.9 %; White Blood Count 4.8 K/mcL (4.3-11.1)
[2021-05-10 12:38] LABS: BUN/Creatinine Ratio 26 (6-26); Blood Urea Nitrogen 14 mg/dL (6-20); C-Reactive Protein 40 mg/L (Less than 10); Calcium 9.2 mg/dL (8.6-10.3); Carbon Dioxide 23 mEq/L (23-29); Chloride 106 mEq/L (98-107); Glucose 101 mg/dL (70-105); Osmolality,Calculated 283 (280-300); Potassium 4.1 mEq/L (3.5-5.1); Sodium 136 mEq/L (136-145); eGFR For African Americans > 60 (> 60); eGFR For Non-African Americans > 60 (> 60)
[2021-05-10] MEDS: traZODone 50 MG TABLET PO SCH (22:19)
[2021-05-11] MEDS: *HR* HYDROmorphone (PF) 1 MG/ML SYRINGE IVP PRN ×4 (06:39→21:44)
[2021-05-11] MEDS: Mirabegron [Myrbetriq] 50 MG Tab.Er.24h PO SCH (07:26)
[2021-05-11] MEDS: polyethylene glycoL 3350 17 GM POWD.PACK PO SCH (07:26)
[2021-05-11] MEDS: CeFAZolin 2,000 MG/120 ML BAG IVPB SCH ×3 (08:12→23:36)
[2021-05-11] MEDS: Gabapentin 400 MG CAPSULE PO SCH ×2 (08:16→21:00)
[2021-05-11] MEDS: Famotidine 20 MG TABLET PO SCH ×2 (08:16→20:36)
[2021-05-11] MEDS: atenoloL 25 MG TABLET PO SCH (08:17)
[2021-05-11] MEDS: Celecoxib 100 MG CAPSULE PO SCH ×2 (08:17→20:36)
[2021-05-11] MEDS: Loratadine 10 MG TABLET PO SCH (08:17)
[2021-05-11] MEDS: Nystatin POWDER 30 GM BOTTLE TP SCH ×2 (08:18→20:37)
[2021-05-11] MEDS: *HR* OxyCODONE/APAP 10/325 TABLET PO PRN ×2 (09:30→17:37)
[2021-05-11] MEDS: traZODone 50 MG TABLET PO SCH (23:48)
[2021-05-12] MEDS: *HR* OxyCODONE/APAP 10/325 TABLET PO PRN ×5 (04:48→21:26)
[2021-05-12] MEDS: Loratadine 10 MG TABLET PO SCH (09:12)
[2021-05-12] MEDS: Famotidine 20 MG TABLET PO SCH ×2 (09:12→21:26)
[2021-05-12] MEDS: Celecoxib 100 MG CAPSULE PO SCH ×2 (09:12→21:25)
[2021-05-12] MEDS: Gabapentin 400 MG CAPSULE PO SCH ×2 (09:12→21:26)
[2021-05-12] MEDS: atenoloL 25 MG TABLET PO SCH (09:12)
[2021-05-12] MEDS: polyethylene glycoL 3350 17 GM POWD.PACK PO SCH (09:12)
[2021-05-12] MEDS: Nystatin POWDER 30 GM BOTTLE TP SCH ×2 (09:13→21:37)
[2021-05-12] MEDS: Mirabegron [Myrbetriq] 50 MG Tab.Er.24h PO SCH (09:13)
[2021-05-12] MEDS: CeFAZolin 2,000 MG/120 ML BAG IVPB SCH ×3 (09:15→23:55)
[2021-05-12] MEDS: Acetaminophen 325 MG TABLET PO PRN (16:17)
[2021-05-12] MEDS: traZODone 50 MG TABLET PO SCH (21:26)
[2021-05-13] MEDS: *HR* OxyCODONE/APAP 10/325 TABLET PO PRN ×4 (05:51→22:49)
[2021-05-13] MEDS: CeFAZolin 2,000 MG/120 ML BAG IVPB SCH ×2 (10:01→16:59)
[2021-05-13] MEDS: Celecoxib 100 MG CAPSULE PO SCH ×2 (10:03→22:49)
[2021-05-13] MEDS: atenoloL 25 MG TABLET PO SCH (10:04)
[2021-05-13] MEDS: Gabapentin 400 MG CAPSULE PO SCH ×2 (10:04→22:48)
[2021-05-13] MEDS: Famotidine 20 MG TABLET PO SCH ×2 (10:04→22:48)
[2021-05-13] MEDS: Loratadine 10 MG TABLET PO SCH (10:04)
[2021-05-13] MEDS: Nystatin POWDER 30 GM BOTTLE TP SCH ×2 (10:05→22:49)
[2021-05-13] MEDS: Mirabegron [Myrbetriq] 50 MG Tab.Er.24h PO SCH (10:05)
[2021-05-13] MEDS: polyethylene glycoL 3350 17 GM POWD.PACK PO SCH (10:05)
[2021-05-13] MEDS: Morphine Sulfate 2 MG/ML SYRINGE IVP PRN (12:00)
[2021-05-13] MEDS: traZODone 50 MG TABLET PO SCH (22:49)
[2021-05-14] MEDS: CeFAZolin 2,000 MG/120 ML BAG IVPB SCH ×3 (00:55→17:38)
[2021-05-14] MEDS: *HR* OxyCODONE/APAP 10/325 TABLET PO PRN ×3 (06:06→20:27)
[2021-05-14] MEDS: polyethylene glycoL 3350 17 GM POWD.PACK PO SCH (09:21)
[2021-05-14] MEDS: Nystatin POWDER 30 GM BOTTLE TP SCH ×2 (09:21→20:28)
[2021-05-14] MEDS: Mirabegron [Myrbetriq] 50 MG Tab.Er.24h PO SCH (09:21)
[2021-05-14] MEDS: Celecoxib 100 MG CAPSULE PO SCH ×2 (09:33→20:27)
[2021-05-14] MEDS: Loratadine 10 MG TABLET PO SCH (09:34)
[2021-05-14] MEDS: atenoloL 25 MG TABLET PO SCH (09:34)
[2021-05-14] MEDS: Famotidine 20 MG TABLET PO SCH ×2 (09:34→20:27)
[2021-05-14] MEDS: Gabapentin 400 MG CAPSULE PO SCH ×2 (09:34→20:27)
[2021-05-14] MEDS: Morphine Sulfate 2 MG/ML SYRINGE IVP PRN (16:34)
[2021-05-14] MEDS: traZODone 50 MG TABLET PO SCH (20:27)
[2021-05-15] MEDS: *HR* OxyCODONE/APAP 10/325 TABLET PO PRN ×5 (00:51→22:18)
[2021-05-15] MEDS: CeFAZolin 2,000 MG/120 ML BAG IVPB SCH ×3 (00:52→16:39)
[2021-05-15] MEDS: atenoloL 25 MG TABLET PO SCH (08:51)
[2021-05-15] MEDS: Gabapentin 400 MG CAPSULE PO SCH ×2 (08:51→22:16)
[2021-05-15] MEDS: Celecoxib 100 MG CAPSULE PO SCH ×2 (08:51→22:17)
[2021-05-15] MEDS: polyethylene glycoL 3350 17 GM POWD.PACK PO SCH (08:52)
[2021-05-15] MEDS: Famotidine 20 MG TABLET PO SCH ×2 (08:52→22:16)
[2021-05-15] MEDS: Loratadine 10 MG TABLET PO SCH (08:52)
[2021-05-15] MEDS: Mirabegron [Myrbetriq] 50 MG Tab.Er.24h PO SCH (08:53)
[2021-05-15] MEDS: Nystatin POWDER 30 GM BOTTLE TP SCH ×2 (08:53→22:17)
[2021-05-15] MEDS: Morphine Sulfate 2 MG/ML SYRINGE IVP PRN (14:37)
[2021-05-15] MEDS: traZODone 50 MG TABLET PO SCH (22:16)
[2021-05-16] MEDS: CeFAZolin 2,000 MG/120 ML BAG IVPB SCH ×4 (01:32→23:57)
[2021-05-16] MEDS: Celecoxib 100 MG CAPSULE PO SCH ×2 (07:32→20:16)
[2021-05-16] MEDS: *HR* OxyCODONE/APAP 10/325 TABLET PO PRN ×4 (07:32→20:18)
[2021-05-16] MEDS: Famotidine 20 MG TABLET PO SCH ×2 (07:32→20:18)
[2021-05-16] MEDS: atenoloL 25 MG TABLET PO SCH (07:33)
[2021-05-16] MEDS: polyethylene glycoL 3350 17 GM POWD.PACK PO SCH (07:33)
[2021-05-16] MEDS: Gabapentin 400 MG CAPSULE PO SCH ×2 (07:33→20:16)
[2021-05-16] MEDS: Loratadine 10 MG TABLET PO SCH (07:33)
[2021-05-16] MEDS: Mirabegron [Myrbetriq] 50 MG Tab.Er.24h PO SCH (07:46)
[2021-05-16] MEDS: Nystatin POWDER 30 GM BOTTLE TP SCH ×2 (07:46→20:19)
[2021-05-16] MEDS: traZODone 50 MG TABLET PO SCH (20:17)
[2021-05-17] MEDS: *HR* OxyCODONE/APAP 10/325 TABLET PO PRN ×5 (02:42→21:18)
[2021-05-17] MEDS: Celecoxib 100 MG CAPSULE PO SCH ×2 (07:59→21:17)
[2021-05-17] MEDS: Famotidine 20 MG TABLET PO SCH ×2 (08:00→21:18)
[2021-05-17] MEDS: Nystatin POWDER 30 GM BOTTLE TP SCH ×2 (08:00→21:28)
[2021-05-17] MEDS: atenoloL 25 MG TABLET PO SCH (08:00)
[2021-05-17] MEDS: Loratadine 10 MG TABLET PO SCH (08:00)
[2021-05-17] MEDS: polyethylene glycoL 3350 17 GM POWD.PACK PO SCH (08:00)
[2021-05-17] MEDS: Mirabegron [Myrbetriq] 50 MG Tab.Er.24h PO SCH (08:00)
[2021-05-17] MEDS: Gabapentin 400 MG CAPSULE PO SCH ×2 (08:00→21:28)
[2021-05-17] MEDS: CeFAZolin 2,000 MG/120 ML BAG IVPB SCH ×2 (08:03→16:53)
[2021-05-17] MEDS: Morphine Sulfate 2 MG/ML SYRINGE IVP PRN (12:24)
[2021-05-17] MEDS: traZODone 50 MG TABLET PO SCH (21:18)
[2021-05-18] MEDS: CeFAZolin 2,000 MG/120 ML BAG IVPB SCH ×4 (00:20→23:48)
[2021-05-18] MEDS: Morphine Sulfate 2 MG/ML SYRINGE IVP PRN ×2 (01:14→10:21)
[2021-05-18] MEDS: *HR* OxyCODONE/APAP 10/325 TABLET PO PRN ×4 (06:44→22:53)
[2021-05-18] MEDS: Celecoxib 100 MG CAPSULE PO SCH ×2 (08:57→22:52)
[2021-05-18] MEDS: Loratadine 10 MG TABLET PO SCH (08:58)
[2021-05-18] MEDS: atenoloL 25 MG TABLET PO SCH (08:58)
[2021-05-18] MEDS: Gabapentin 400 MG CAPSULE PO SCH ×2 (08:58→22:52)
[2021-05-18] MEDS: Famotidine 20 MG TABLET PO SCH ×2 (08:58→22:52)
[2021-05-18] MEDS: polyethylene glycoL 3350 17 GM POWD.PACK PO SCH (09:05)
[2021-05-18] MEDS: Mirabegron [Myrbetriq] 50 MG Tab.Er.24h PO SCH (09:05)
[2021-05-18] MEDS: Nystatin POWDER 30 GM BOTTLE TP SCH ×2 (09:05→22:54)
[2021-05-18] MEDS: traZODone 50 MG TABLET PO SCH (22:52)
[2021-05-19] MEDS: *HR* OxyCODONE/APAP 10/325 TABLET PO PRN ×3 (04:21→13:04)
[2021-05-19] MEDS: Celecoxib 100 MG CAPSULE PO SCH (08:31)
[2021-05-19] MEDS: Gabapentin 400 MG CAPSULE PO SCH (08:31)
[2021-05-19] MEDS: atenoloL 25 MG TABLET PO SCH (08:32)
[2021-05-19] MEDS: Loratadine 10 MG TABLET PO SCH (08:32)
[2021-05-19] MEDS: Famotidine 20 MG TABLET PO SCH (08:32)
[2021-05-19] MEDS: CeFAZolin 2,000 MG/120 ML BAG IVPB SCH (08:35)
[2021-05-19 10:13] VITALS: BP 108/65; PULSE 88; TEMP 97.9; O2SAT 98
[2021-05-19] MEDS: Mirabegron [Myrbetriq] 50 MG Tab.Er.24h PO SCH (11:39)
[2021-05-19] MEDS: polyethylene glycoL 3350 17 GM POWD.PACK PO SCH (11:39)
[2021-05-19] MEDS: Nystatin POWDER 30 GM BOTTLE TP SCH (11:41)
[2021-05-19] MEDS: Morphine Sulfate 2 MG/ML SYRINGE IVP PRN (16:06)
== END 2021-05-19 16:30 | DRG 720 ==
LOC: 3BNU 18:16 → EMEROOARM 18:16 → SUATTDRO 04-25 10:20 → 3BNU 04-25 11:39 → SUATTDRO 04-27 14:08 → 3BNU 05-06 14:38
PROVIDERS: ADMIT Internal Medicine; ATTEND Internal Medicine
PROC: IRFLUID (2021-04-26 12:00)